=== PATIENT | female | born 1980 | race Native Hawaiian/Other Pacific Islander ===

== ENCOUNTER → 2017-05-07 | Outpatient (CLI) | payer OTHER ==
[~2017-05-07] MED LIST: PREN1CAP20 PO; PREN1CHW7 PO; ZANT150T2 PO
== END ==
LOC: HPND 08:47
PROVIDERS: ATTEND Obstetrics & Gynecology
DX: O09.522 Supervision of elderly multigravida, second trimester (principal); Z3A.00 Weeks of gestation of pregnancy not specified
CPT/HCPCS: 76801

== ENCOUNTER → 2017-05-19 | Outpatient (CLI) | payer OTHER | LOC: HPND 08:35 | PROVIDERS: ATTEND Obstetrics & Gynecology | DX: O09.521 Supervision of elderly multigravida, first trimester (principal) | CPT/HCPCS: 36415; 76813 ==

== ENCOUNTER → 2017-06-23 | Outpatient (CLI) | payer OTHER | LOC: HPND 08:49 | PROVIDERS: ATTEND Obstetrics & Gynecology | DX: O09.522 Supervision of elderly multigravida, second trimester (principal); O34.212 Maternal care for vertical scar from previous cesarean delivery; O34.12 Maternal care for benign tumor of corpus uteri, second trimester | CPT/HCPCS: 76811 ==

== ENCOUNTER → 2017-08-05 | Outpatient (CLI) | payer OTHER ==
[~2017-08-05] MED LIST changes: +FAMO1TAB73 PO; -ZANT150T2 PO; +ZITHTAB PO
== END ==
LOC: HPND 08:50
PROVIDERS: ATTEND Obstetrics & Gynecology
DX: O09.522 Supervision of elderly multigravida, second trimester (principal); O34.12 Maternal care for benign tumor of corpus uteri, second trimester
CPT/HCPCS: 76816

== ENCOUNTER 2017-08-19 12:30 | Emergency (ER) | payer OTHER ==
--- NOTE | 2017-08-19 13:14 | PD ---
HPI Chief Complaint Nosebleeds 2 Date Seen: Aug 19, 2017 Time Seen: 13:00 Travel History International Travel<30 Days: No Contact w/Intl Traveler<30Days: No Known Affected Area: No History of Present Illness HPI Patient is 36-year-old [place] female at 26-27 weeks [facility] and presents with multiple nosebleeds in the last 24 hours, she has no history of that prior to this episode she has no history of a bleeding problem the only thing she's done for is to stuff toilet paper in her nose and states only bleeding from the left nostril. Baby is active heart rate tracing is reactive 26 weeks and her contractions Weeks Gestation: 26 Para: 1 : 2 History Obstetric History Obstetric History Past Surgical History Narrative Surgical Family History Family History: Negative Social History Alcohol Use: No Tobacco Use: No Substance Abuse: No Allergies-Medications (Allergen,Severity, Reaction): Coded Allergies: shellfish derived (Unverified Allergy, Severe, Hives, 08/03/17) Home Meds Active Scripts Azithromycin (Zithromax Z-Nikos) 250 Mg Dspk, 250 MG PO DIRECTED for Infection , #1 DSPK 0 Refills 500 MG (2 tabs) day 1, then 1 tab days 2-5. Prov:Lacie dOonnell 08/03/17 Famotidine (Pepcid) 40 Mg Tab, 40 MG PO BID, #60 TAB 6 Refills Prov:Lacie Odonnell 07/05/17 Vit W/ Ferric Phospha (Vitafol Gummies 3.33-0.333-34.8 mg) 1 Chw Chw, 3 TAB PO DAILY, #90 BOTTLE 11 Refills Prov:Lacie Odonnell 06/09/17 W/O Vit A W/ Fe Carbo (Prenate Mini 18-0.6-0.4-350 mg) 18 Mg Iron-1 Mg- 350 Mg Cap, 1 TAB PO DAILY, #90 BOTTLE 11 Refills Prov:Lacie Odonnell 05/06/17 Review of Systems General / Constitutional: No: Fever, Weight Gain, Chills, Other Eyes: No: Diploplia, Blurred Vision, Visual changes, Pain, Photophobia HENT: Other, No: Headaches, Vertigo, Lightheadedness Cardiovascular: No: Irregular Rhythm, Chest Pain or Discomfort, Palpitations, Tachycardia, Syncope, Varicosities, Edema, Cyanosis Respiratory: No: Cough, Short of Breath, Other Gastrointestinal: No: Nausea, Vomiting, Diarrhea Genitourinary: No: Decreased Urinary Output, Oliguria Musculoskeletal: No: Limited ROM, Weakness, Cramping, Edema, Pain Skin: No Rash, No Itching, No Dryness, No Lumps, No Change in Pigmentation, No Change in Nails, No Alopecia, No Lesions Neurologic: No: Weakness, Dizziness, Syncope, Focal Abnormalities, Coordination Problem, Headache, Slurred Speech, Seizures Psychiatric: No: Depression, Suicidal Ideations, Homicidal Ideation Endocrine: No: Heat Intolerance, Cold Intolerance, Polydipsia, Polyuria, Other Physical Exam Narrative GENERAL: Well-nourished, well-developed patient. SKIN: Warm and dry. HEAD: Normocephalic and atraumatic. EYES: No scleral icterus. No injection or drainage. ENT: No nasal drainage or bleeding noted I examined the nose just flashlight could see in the left nostril the medial septum was inflamed and had a pink and minimally blood stained appearance noted and this was different from the septum in the right nostril. Mucous membranes pink. Airway patent. NECK: Supple, trachea midline. No JVD. CARDIOVASCULAR: Regular rate and rhythm without murmurs, gallops, or rubs. RESPIRATORY: Breath sounds equal bilaterally. No accessory muscle use. BREASTS: Bilateral exam showed no masses , no retractions, no nipple discharge. ABDOMEN/GI: Abdomen soft, non-tender, bowel sounds present, no rebound, no guarding Gravid to [26-] weeks size Fundal Height: [-26] Membranes: [intact ] Uterine Contractions: [-none] FHT's: Category: [1-] Baseline: [133-] Reactive: [-yes] Variability: [mod-] Decels: [-none] EXTREMITIES: No cyanosis or edema. BACK: Nontender without obvious deformity. No CVA tenderness. NEUROLOGICAL: Awake and alert. Motor and sensory grossly within normal limits. Five out of 5 muscle strength in all muscle groups. Normal speech. Data Data Orders Orders Cbc No Diff, Includes Plts (08/19/17 13:06) Labs H/H - MDM Interpretation(s) 36-year-old [place]ese female previous at 20 657 weeks presents with nosebleeds, has no obstetric problems baby is active heart rate tracing is reactive and no contractions. Is having no bleeding from the nose at this time the states that she bled last night was the last time H / H - Plan I offered the patient the opportunity go to the emergency room for more complete workup of nosebleeds mainly interested her blood count and seeing what if she is anemic because she can a little lightheaded when she had these bleeds H/H - will give a Rx for tid FeSo4 Diagnosis Diagnosis: Primary Impression: Epistaxis not due to trauma Additional Impressions: Previous section 26 weeks gestation of Disposition: 01 DISCHARGE HOME Condition: Stable Scripts Ferrous Sulfate (Ferrous Sulfate) 325 Mg (65 Mg Iron) Tablet 325 MG PO TIDPC for Nutritional Supplement for 30 Days, #90 TAB 0 Refills Prov: Stalin Cisneros II, MD 08/19/17 Patient Instructions: General Instructions Departure Forms: Tests/Procedures Stalin Cisneros II, MD Aug 19, 2017 13:13
[2017-08-19 13:49] LABS: HEMATOCRIT 29.4 % (35.0-46.0); HEMOGLOBIN 9.9 GM/DL (11.6-15.3); MEAN CORPUSCULAR HGB CONC 33.8 % (32.0-36.0); MEAN PLATELET VOLUME 8.1 FL (7.0-11.0); PLATELET COUNT 210 TH/MM3 (150-450); RED BLOOD COUNT 3.97 MIL/MM3 (4.00-5.30); WHITE BLOOD COUNT 7.5 TH/MM3 (4.0-11.0)
[2017-08-19] MEDS ORDERED: FERR325T18 PO (13:55)
[2017-08-31] MEDS ORDERED: PROC2.5C RECTAL (10:41)
[2017-08-31] MEDS ORDERED: [UNRECOGNIZED DRUG - OTHER] PO (10:44)
[2017-09-06] MEDS ORDERED: FERRTAB2 PO (11:26)
== END 2017-08-19 14:07 | disposition home or self-care (01) ==
LOC: HOBED 12:30
DX: O26.892 Other specified pregnancy related conditions, second trimester (principal); R04.0 Epistaxis; O34.219 Maternal care for unspecified type scar from previous cesarean delivery; Z3A.27 27 weeks gestation of pregnancy
CPT/HCPCS: 85027; 99284

== ENCOUNTER → 2017-09-13 | Outpatient (CLI) | payer OTHER ==
[~2017-09-13] MED LIST changes: -FAMO1TAB73 PO; +FERR325T18 PO; +FERRTAB2 PO; +PROC2.5C RECTAL; -ZITHTAB PO; +[UNRECOGNIZED DRUG - OTHER] PO
== END ==
LOC: CDED 08:47
PROVIDERS: ATTEND Nurse Practitioner Women's Health
DX: O24.419 Gestational diabetes mellitus in pregnancy, unspecified control (principal)
CPT/HCPCS: 97802

== ENCOUNTER 2017-11-10 10:03 | Inpatient (IN) | payer OTHER ==
[2017-11-10] VITALS (8 sets, daily range): BP systolic 95–128; BP diastolic 66–82; PULSE 76–105; RESP 17–18; TEMP 97.4–97.6; O2SAT 99–100
[~2017-11-10] VITALS: Ht 160 cm; Wt 62.0 kg
[2017-11-10] MEDS ORDERED: LACTATED RINGER'S 1000 ML INJ 1,000 ML IV ONE (10:27)
--- NOTE | 2017-11-10 10:42 | HHI.HP ---
History & Physical H&P Patient Name: Alina Matute Unit Number: [id number] Date of : 1980 Patient Status: Registered Clinic Attending Doctor: Lacie Richey MD HPI HPI Chief Complaint Consult Travel History International Travel<30 Days: No Contact w/Intl Traveler<30Days: No Known Affected Area: No History of Present Illness HPI 36-year-old 001, IUP at 38 weeks care complicated by history of prior delivery, desire for permanent surgical sterilization, AMA, A1 DM The patient presents for leakage of amniotic fluid amnisure is positive. Her previous was at term in 2013. She does not desire a trial of labor/ . She denies any obstetrical complaints today. She reports good movement. She denies any frequent or painful contractions. . She denies any vaginal bleeding. The patient reports her sugars are well-controlled at home on diet only. She checks fasting blood sugars which are typically in the 90s and 2 hour postprandials which range from 100-125. Weeks Gestation: 38 Para: 1 : 2 Miscarriage: 0 : 0 History (Limited) History Past Medical History Narrative Medical History of gestational diabetes Obstetric History Obstetric History 001 Full-term delivery 1 Menarche at 13 Menses are irregular and do not occur monthly Menses last approximate 5 days The patient denies a history of abnormal Pap smears or STDs Past Surgical History Narrative Surgical section 1 Family History Narrative Family History DM Social History Alcohol Use: No Tobacco Use: No Substance Abuse: No Allergies-Medications Allergies-Medications (Allergen,Severity, Reaction): Coded Allergies: shellfish derived (Unverified Allergy, Severe, Hives, 08/31/17) Home Meds Active Scripts Multi-Vit/Iron-Folic [id number] C (Ferralet) 90-1-0.012-120 mg Tab, 1 CAP PO DAILY for 30 Days, #30 CHEW 3 Refills Prov:Katharine Smith CNM [employer]UFA[employer]URING [employer]OMATION ENGINEER 09/06/17 [citranatal campbell] No Conflict Check, 1 TAB PO DAILY for anemia, #30 BOTTLE 7 Refills Prov:Lacie Odonnell MANUFACTURING AUTOMATION ENGINEER 08/31/17 Hydrocortisone Rectal 2.5% (Proctosol Hc 2.5%) 2.5% Cream, 1 APPLIC RECTAL Q4H Y for PAIN/INFLAMMATION, #1 TUBE 3 Refills Prov:Lacie Odonnell 08/31/17 Ferrous Sulfate (Ferrous Sulfate) 325 Mg (65 Mg Iron) Tablet, 325 MG PO TIDPC for Nutritional Supplement for 30 Days, #90 TAB 0 Refills Prov:Stalin Cisneros II, MD 08/19/17 Vit W/ Ferric Phospha (Vitafol Gummies 3.33-0.333-34.8 mg) 1 Chw Chw, 3 TAB PO DAILY, #90 BOTTLE 11 Refills Prov:Lacie Odonnell 06/09/17 W/O Vit A W/ Fe Carbo (Prenate Mini 18-0.6-0.4-350 mg) 18 Mg Iron-1 Mg- 350 Mg Cap, 1 TAB PO DAILY, #90 BOTTLE 11 Refills Prov:Lacie Odonnell 05/06/17 ROS Review of Systems Except as stated in HPI: all other systems reviewed are Neg Physical Exam Physical Exam Narrative GENERAL: Well-nourished, well-developed patient. SKIN: Warm and dry. HEAD: Normocephalic and atraumatic. EYES: No scleral icterus. No injection or drainage. ENT: No nasal drainage noted. Mucous membranes pink. Airway patent. NECK: Supple, trachea midline. No JVD. CARDIOVASCULAR: Regular rate and rhythm without murmurs, gallops, or rubs. RESPIRATORY: Breath sounds equal bilaterally. No accessory muscle use. BREASTS: Deferred ABDOMEN/GI: Abdomen soft, non-tender, bowel sounds present, no rebound, no guarding Gravid GENITOURINARY - cx posterior closed FHT's: 144 reactive strip CTXs q 3-4 min EXTREMITIES: No cyanosis or edema. BACK: Nontender without obvious deformity. NEUROLOGICAL/musculoskeletal: Awake and alert. Motor and sensory grossly within normal limits. Grossly normal Five out of 5 muscle strength in all muscle groups. Normal speech. Grossly normal range of motion and gait Psychiatric: Grossly normal memory and affect Data Data [facility] Plan Assessment/plan: 1. IUP at 38 weeks with SROM 2. History of prior delivery: The patient desires elective repeat delivery which will be scheduled at 39 weeks. She does not desire trial of labor/. Risks, benefits, and alternatives to delivery were discussed at length including but not limited to pain, infection, bleeding , injury to other organs like the bladder/bowel/nerves/vessels, injury to the baby, need for repeat operation, need for hysterectomy, need for blood transfusion, wound infection/breakdown, and other possible complications. All of her questions were answered and she desires to proceed. She will sign consent on the day of surgery. 3. Contraception: The patient desires permanent surgical sterilization. She is content with her family size and does not desire any other biological children. Bilateral tubal ligation was discussed at length with the patient including the permanent and irreversible nature of the procedure and the inability to have further biological children should she desire. Other risks include failure of approximately 1%, risk of ectopic , the risk of needing emergency surgery due to a complication with the tubal/ectopic, and other possible complications. Alternatives were discussed at length including but not limited to the terminal superintendent reversible contraceptive methods, OCPs, patch, Depo-Provera, and other possible methods. Her tubal papers were verified and were signed on 09/22/17. 4. well-being: Recommend kick counts daily 5. A1 DM: Continue ADA diet, and glucose monitoring 6. Follow up with primary OB as scheduled or sooner if needed. Lacie Rihcey MD Nov 08, 2017 13:45 Stalin Cisneros II, MD Nov 10, 2017 10:42
[2017-11-10] MEDS ORDERED: LACTATED RINGER'S 1000 ML INJ 1,000 ML IV SCH ×2 (10:57→17:43)
[2017-11-10] MEDS ORDERED: ceFAZolin INJ 1,000 MG VIAL ONE (11:05)
[2017-11-10 11:14] LABS: AUTOMATED NEUTROPHIL # 6.3 TH/MM3 (1.8-7.7); BASOPHIL % 0.5 % (0.0-2.0); EOSINOPHIL # 0.1 TH/MM3 (0-0.4); EOSINOPHIL % 1.3 % (0.0-4.0); HEMATOCRIT 33.4 % (35.0-46.0); HEMOGLOBIN 10.8 GM/DL (11.6-15.3); LYMPH % 20.9 % (9.0-44.0); LYMPHOCYTE # 1.9 TH/MM3 (1.0-4.8); MEAN CELL VOLUME 71.1 FL (80.0-100.0); MEAN CORPUSCULAR HGB CONC 32.3 % (32.0-36.0); MEAN PLATELET VOLUME 8.2 FL (7.0-11.0); MONOCYTE # 0.6 TH/MM3 (0-0.9); NEUT % 70.3 % (16.0-70.0); PLATELET COUNT 202 TH/MM3 (150-450); RED BLOOD COUNT 4.71 MIL/MM3 (4.00-5.30)
[2017-11-10 11:19] LABS: BILIRUBIN, URINE NEG (NEG); BLOOD, URINE NEG (NEG); GLUCOSE,URINE NEG (NEG); KETONE, URINE NEG (NEG); MUCUS URINE FEW /lpf (OCC); NITRITE,URINE NEG (NEG); PH, URINE 6.5 (5.0-8.5); RENAL EPITHELIAL CELLS <1 /hpf; SQUAMOUS EPITHELIAL CELL URINE 3 /hpf (0-5); URINE COLOR YELLOW (YELLW/STRAW); URINE LEUKOCYTE ESTERASE NEG (NEG)
[2017-11-10] MEDS ORDERED: MORPHINE SULFATE PF 5 MG/10 ML VIAL ONE (11:21)
[2017-11-10] MEDS ORDERED: ceFAZolin 2 GM PREMIX 50 ML IV SCH (11:30)
[2017-11-10] MEDS ORDERED: EPIDURAL-NO SYSTEMIC NARCOTICS PRN (11:38)
[2017-11-10] MEDS ORDERED: EPIDURAL-NALOXONE HCL 0.4 MG/ML AMP IV PUSH PRN (11:38)
[2017-11-10] MEDS ORDERED: EPIDURAL-DIPHENHYDRAMINE HCL 50 MG CAP PO PRN (11:38)
[2017-11-10] MEDS ORDERED: EPIDURAL-DO NOT ADMINISTER ANTICOAGULANTS PRN (11:38)
[2017-11-10] MEDS ORDERED: EPIDURAL-DIPHENHYDRAMINE HCL 50 MG/ML VIAL IV PUSH PRN (11:38)
[2017-11-10] MEDS ORDERED: ONDANSETRON HCL 4 MG/2 ML VIAL IV ONE (12:00)
[2017-11-10] MEDS ORDERED: ePHEDrine/NS 25 MG/5 ML SYRINGE IV ONE (12:00)
[2017-11-10] MEDS ORDERED: PHENYLEPH/NS 1000 MCG/10 ML SYR IV ONE (12:00)
[2017-11-10] MEDS ORDERED: OXYTOCIN 10 UNIT/ML AMP IV ONE (12:00)
[2017-11-10] MEDS ORDERED: CITRIC ACID-SODIUM CITRATE LIQ 30 ML UDC PO SCH (12:00)
[2017-11-10] MEDS ORDERED: LIDOCAINE 2%/EPINEPHrine PF 1:200,000 20ML SDV OTHER ONE (12:00)
[2017-11-10] MEDS ORDERED: DEXAMETHASONE SOD PHOS 4 MG/ML VIAL IV ONE (12:00)
[2017-11-10] MEDS ORDERED: ACETAMINOPHEN 1000 MG/100 ML 100 ML IV ONE (12:12)
[2017-11-10] MEDS ORDERED: ONDANSETRON HCL 4 MG/2 ML VIAL IV PUSH PRN (12:45)
[2017-11-10] MEDS ORDERED: SIMETHICONE 80 MG CHEWABLE TAB PO PRN (12:45)
[2017-11-10] MEDS ORDERED: SODIUM CHLORIDE 0.9% FLUSH 10 ML FLUSH IV FLUSH PRN (12:45)
[2017-11-10] MEDS ORDERED: ZOLPIDEM TARTRATE 5 MG TAB PO PRN (12:45)
[2017-11-10] MEDS ORDERED: oxyCODONE/ACETAMINOPHEN 5 MG/325 MG TAB PO PRN (12:45)
[2017-11-10] MEDS ORDERED: MEPERIDINE HCL 25 MG/ML VIAL ONE (13:00)
[2017-11-10] MEDS ORDERED: KETOROLAC TROMETHAMINE 60 MG/2 ML (IM) VIAL IM ONE ×2 (13:00→14:45)
--- NOTE | 2017-11-10 13:16 | MP ---
cc: Stalin Cisneros MD DATE OF OPERATION: PREOPERATIVE DIAGNOSES: Term intrauterine , previous section with spontaneous rupture of membranes, desires repeat section, tubal ligation for sterilization. POSTOPERATIVE DIAGNOSES: Term intrauterine , previous section with spontaneous rupture of membranes, desires repeat section, tubal ligation for sterilization. PROCEDURE PERFORMED: Repeat low transverse section, bilateral tubal ligation. SURGEON: Stalin Cisneros MD BULL RIDER: ANESTHESIA: Spinal. PREOPERATIVE NOTE: Patient is a 36-year-old female at 39 weeks, who has had a previous and requests repeat . She had spontaneous rupture of membranes this morning. Her AmniSure is positive. She is brett regularly. The patient requests repeat and planned that procedure. PROCEDURE: The patient was taken to the operating room and placed in supine position on the operating table. After adequate spinal anesthesia, she was prepped and draped for abdominal surgery. Her previous Pfannenstiel incision was excised out and cast away. Incision carried to the fascia sharply. The fascia was incised laterally and then off the rectus muscle in the usual fashion. The peritoneal cavity entered in the midline, the incision extended superior and inferiorly, and the bladder blade placed in the lower edge of the incision. The visceral peritoneum reflected off the lower uterine segment sharply and was placed on a bladder blade. The transverse hysterotomy was made, extended bluntly bilaterally and clear fluid noted. A male was delivered from vertex presentation at 12 noon even, and weight was 3170 grams, 8 and 9. There were no complications with delivery. Cord blood obtained. This was after delayed cord clamping for 45 seconds. Placenta manually extracted. The uterus exteriorized and the hysterotomy closed in running layer of 0 chromic, followed by imbricating suture of same, and hemostasis achieved with several [id number] stick ties. The tubal was then performed. The uterus was elevated somewhat and the left tube grasped with a Marv clamp and elevated. An avascular window in the mesosalpinx identified and a hemostat passed through. The 2 catgut sutures were brought through that window in the mesosalpinx, and the tube was tied fore and aft and the intervening segment excised out and sent to pathology. There was no complication of that procedure. Same was done on the opposite side. The uterus was elevated and blood suctioned from the cul-de-sac, gutters, and the uterus replaced in peritoneal cavity. Parietal peritoneum closed in running layer of 2-0 Vicryl. The rectus muscle reapproximated with stick ties of chromic and Vicryl. The fascia was then closed in a running layer of 0 Vicryl. The subcutaneous tissues reapproximated with a running stitch of 3-0 plain catgut suture. The skin closed with 3-0 Monocryl in a subcuticular stitch and a pressure dressing applied. The estimated blood loss 500 mL. There were no complications. Sponge and needle correct x 2, and the patient to recovery in stable condition. Baby to [facility]. MD XIOMARA Lopez/ELSA , 12:51 PM , 01:14 PM
[2017-11-10] MEDS ORDERED: OXYTOCIN 30 UNITS-500ML PREMIX 500 ML IV ONE (13:30)
[2017-11-10] MEDS ORDERED: MEPERIDINE HCL 25 MG/ML VIAL IV PUSH ONE (14:45)
[2017-11-10] MEDS ORDERED: SODIUM CHLORIDE 0.9% FLUSH 10 ML FLUSH IV FLUSH SCH (21:00)
[2017-11-10] MEDS ORDERED: OXYTOCIN 30 UNITS-500ML PREMIX 500 ML IV PRN (22:45)
[2017-11-11] VITALS: BP 101/65; PULSE 96; RESP 18; TEMP 98
[2017-11-11] MEDS: IBUPROFEN 600 MG TAB PO PRN ×4 (02:59→21:15)
[2017-11-11] MEDS: ACETAMINOPHEN 325 MG TAB PO PRN ×2 (02:59→08:45)
[2017-11-11 04:23] VITALS: BP 86/59; PULSE 81; RESP 18; TEMP 97.8
[2017-11-11 05:54] LABS: BASOPHIL % 0.1 % (0.0-2.0); EOSINOPHIL % 0.2 % (0.0-4.0); HEMATOCRIT 25.2 % (35.0-46.0); HEMOGLOBIN 8.2 GM/DL (11.6-15.3); LYMPH % 15.4 % (9.0-44.0); MEAN CELL VOLUME 70.6 FL (80.0-100.0); MEAN CORPUSCULAR HEMOGLOBIN 23.1 PG (27.0-34.0); MEAN CORPUSCULAR HGB CONC 32.7 % (32.0-36.0); MEAN PLATELET VOLUME 7.8 FL (7.0-11.0); MONO % 6.9 % (0.0-8.0); MONOCYTE # 0.9 TH/MM3 (0-0.9); NEUT % 77.4 % (16.0-70.0); PLATELET COUNT 170 TH/MM3 (150-450); RED BLOOD COUNT 3.57 MIL/MM3 (4.00-5.30); WHITE BLOOD COUNT 12.9 TH/MM3 (4.0-11.0)
[2017-11-11 06:15] LABS: BICARBONATE 22.5 MEQ/L (21.0-32.0); CALCIUM 7.8 MG/DL (8.5-10.1); CREATININE 0.47 MG/DL (0.50-1.00)
--- NOTE | 2017-11-11 08:15 | HHI.OB ---
Subjective Post Operative Day: 1 Remarks Postoperative day number 1. AFVSS overnight. Pain well-controlled. Incision not draining. Decreased lochia. Denies dysuria. No breast tenderness. She is feeding the baby via breast. Appetite good. No nausea or vomiting. + flatus. no bowel movement. Ambulating well. Denies calf pain, shortness of breath, or cough. Otherwise, she is doing well this morning and has no other complaints. Objective Vitals/I&O Vital Signs Date Time Temp Pulse Resp B/P (MAP) Pulse Ox O2 Delivery O2 Flow Rate FiO2 11/11/17 04:23 97.8 81 18 86/59 (68) 11/11/17 00:00 98.0 96 18 101/65 (77) 11/10/17 20:30 97.6 105 17 106/69 (81) 11/10/17 14:40 97.6 85 18 95/68 (77) 99 11/10/17 13:50 76 18 127/70 (89) 100 11/10/17 13:44 97.4 11/10/17 13:38 84 18 99 11/10/17 13:38 108/67 (81) 11/10/17 13:25 99 11/10/17 13:25 88 18 128/75 (92) 11/10/17 13:10 90 18 110/66 (81) 100 11/10/17 12:55 97.6 18 100 11/10/17 12:55 80 112/82 (92) Result Diagram: 11/11/17 0505 11/11/17 0505 Objective Remarks GENERAL: Well-nourished, well-developed patient. CARDIOVASCULAR: Regular rate and rhythm without murmurs, gallops, or rubs. RESPIRATORY: Breath sounds equal bilaterally. No accessory muscle use. ABDOMEN/GI: Abdomen soft, non-tender, bowel sounds present. Incision: Clean, dry and intact. Fundus: Firm, non-tender at umbilicus. GENITOURINARY: Light to moderate bleeding. EXTREMITIES: No cyanosis or edema, non-tender, without signs of DVT. Medications and IVs Current Medications Medications (Trade) Dose Ordered Sig/William Route Start Time Stop Time Status Last Admin Lactated Ringer's 1,000 ml @ 100 mls/hr Q10H IV 11/10/17 17:43 11/11/17 13:42 11/10/17 17:00 Oxytocin 500 ml @ 100 mls/hr UNSCH X1 PRN IV 11/10/17 22:45 11/11/17 22:44 (NS Flush) 2 ml BID IV FLUSH 11/10/17 21:00 (NS Flush) 2 ml UNSCH PRN IV FLUSH 11/10/17 12:45 (Mylicon Chew) 80 mg QID PRN PO 11/10/17 12:45 (Tylenol) 650 mg Q6H PRN PO 11/10/17 12:45 11/11/17 02:59 (Motrin) 600 mg Q6H PRN PO 11/10/17 12:45 11/11/17 02:59 (Percocet 5-325 Mg) 1 tab Q4H PRN PO 11/10/17 12:45 (Percocet 5-325 Mg) 2 tab Q4H PRN PO 11/10/17 12:45 (Lissett-Colace) 2 tab Q12H PRN PO 11/10/17 12:45 (Ambien) 5 mg HS PRN PO 11/10/17 12:45 (M-M-R Ii Inj) 0.5 ml ONCE ONCE SQ 11/11/17 16:00 11/11/17 16:01 (Boostrix Inj) 0.5 ml ONCE ONCE IM 11/11/17 16:00 11/11/17 16:01 11/11/17 03:55 (Zofran Inj) 4 mg Q6H PRN IV PUSH 11/10/17 12:45 Miscellaneous Information NO SYSTEMIC NARCOTICS TO BE GIVEN FO... UNSCH PRN .XX 11/10/17 11:38 11/11/17 11:37 (Narcan Inj) 0.4 mg UNSCH PRN IV PUSH 11/10/17 11:38 11/11/17 11:37 (Benadryl Inj) 25 mg Q6H PRN IV PUSH 11/10/17 11:38 11/11/17 11:37 (Benadryl) 50 mg Q6H PRN PO 11/10/17 11:38 11/11/17 11:37 11/10/17 15:50 Miscellaneous Information ALL NURSING DEPARTMENTS UNSCH PRN .XX 11/10/17 11:38 11/11/17 11:37 Assessment/Plan Problem List: (1) delivery delivered ICD Codes: O82 - Encounter for delivery without indication Status: Acute Plan: 36 y/o female who is POD# 1 s/p CXN. -Continue routine care. -Percocet and Motrin PRN pain. -Encouraged OOB. Advised pelvic rest for 6 wks. Will need a f/u appt. in 1 wk for incision check. -Re: ctrl, a tubal ligation was performed. -D/c in 1-2 more days. wdw OB attending, Chloe Garcia MD R1 Nov 11, 2017 08:15
[2017-11-11] MEDS: DOCUSATE SODIUM 50 MG/SENNA 8.6 MG TAB PO PRN ×2 (08:45→21:15)
[2017-11-11] MEDS ORDERED: DIPHTH/TETANUS/ACEL PERTUSSIS (BOOSTER) 0.5 ML VIAL/PFS IM ONE (16:00)
[2017-11-11] MEDS ORDERED: MEASLES, MUMPS, RUBELLA VACCINE 0.5 ML VIAL SQ ONE (16:00)
[2017-11-11 19:55] VITALS: BP 116/80; PULSE 85; RESP 16; TEMP 97.8
[2017-11-11 20:30] VITALS: BP 116/80; PULSE 85; RESP 16; TEMP 97.8
[2017-11-11] MEDS: oxyCODONE/ACETAMINOPHEN 5 MG/325 MG TAB PO PRN (21:14)
[2017-11-12] MEDS: oxyCODONE/ACETAMINOPHEN 5 MG/325 MG TAB PO PRN ×4 (03:56→19:43)
[2017-11-12] MEDS: IBUPROFEN 600 MG TAB PO PRN ×3 (03:56→19:43)
--- NOTE | 2017-11-12 07:27 | HHI.OB ---
Subjective Post Operative Day: 2 Remarks Postoperative day number 2. AFVSS overnight. Pain well-controlled. Incision not draining. Decreased lochia. Denies dysuria. No breast tenderness. She is feeding the baby via breast. Appetite good. No nausea or vomiting. + flatus. no bowel movement. Ambulating well. Denies calf pain, shortness of breath, or cough. Otherwise, she is doing well this morning and has no other complaints. Objective Vitals/I&O Vital Signs Date Time Temp Pulse Resp B/P (MAP) Pulse Ox O2 Delivery O2 Flow Rate FiO2 11/11/17 20:30 97.8 11/11/17 20:30 85 16 116/80 (92) 11/11/17 19:55 97.8 85 16 116/80 (92) Result Diagram: 11/11/17 0505 11/11/17 0505 Objective Remarks GENERAL: Well-nourished, well-developed patient. CARDIOVASCULAR: Regular rate and rhythm without murmurs, gallops, or rubs. RESPIRATORY: Breath sounds equal bilaterally. No accessory muscle use. ABDOMEN/GI: Abdomen soft, non-tender, bowel sounds present. Incision: Clean, dry and intact. Fundus: Firm, non-tender at umbilicus. GENITOURINARY: Light to moderate bleeding. EXTREMITIES: No cyanosis or edema, non-tender, without signs of DVT. Medications and IVs Current Medications Medications (Trade) Dose Ordered Sig/William Route Start Time Stop Time Status Last Admin (NS Flush) 2 ml BID IV FLUSH 11/10/17 21:00 (NS Flush) 2 ml UNSCH PRN IV FLUSH 11/10/17 12:45 (Mylicon Chew) 80 mg QID PRN PO 11/10/17 12:45 (Tylenol) 650 mg Q6H PRN PO 11/10/17 12:45 11/11/17 08:45 (Motrin) 600 mg Q6H PRN PO 11/10/17 12:45 11/12/17 03:56 (Percocet 5-325 Mg) 1 tab Q4H PRN PO 11/10/17 12:45 11/11/17 15:25 (Percocet 5-325 Mg) 2 tab Q4H PRN PO 11/10/17 12:45 11/12/17 03:56 (Lissett-Colace) 2 tab Q12H PRN PO 11/10/17 12:45 11/11/17 21:15 (Ambien) 5 mg HS PRN PO 11/10/17 12:45 (Zofran Inj) 4 mg Q6H PRN IV PUSH 11/10/17 12:45 Assessment/Plan Problem List: (1) delivery delivered ICD Codes: O82 - Encounter for delivery without indication Status: Acute Plan: 36 y/o female who is POD# 2 s/p CXN. -Continue routine care. -Percocet and Motrin PRN pain. -Encouraged OOB. Advised pelvic rest for 6 wks. Will need a f/u appt. in 1 wk for incision check. -Re: ctrl, a tubal ligation was performed. -D/c likely tomorrow, but may d/c today if patient decides. wdw OB attending, Chloe So MD R1 Nov 12, 2017 07:27
[2017-11-12 07:43] VITALS: BP 90/60; PULSE 79; RESP 18; TEMP 97.6; O2SAT 100
[2017-11-12] MEDS ORDERED: OXYC1TAB63 PO (08:46)
--- NOTE | 2017-11-12 12:03 | HHI.FPPN ---
Addendum to progress note ADDENDUM Reason for addendum: Additonal documentation Additional information S: Received a call from nursing staff about patient having 10/10 abdominal pain. I went to see her around 1135. Patient stated that she was having pain in her lower bilateral abdomen particularly around her incision site. She stated that she was having trouble ambulating due to the pain. She is still having flatus. No BM as of yet. Pt stated that she was just given a dose of Ibuprofen and Percocet prior to my arrival. She had a Simethicone chew earlier this morning. O: General: Patient laying in bed on her back, in no acute distress. Abdomen: Nondistended. Uterus palpated below umbilicus. Normoactive bowel sounds in all 4 quadrants. Tenderness in bilateral lower quadrants. Incision site without signs of infection, no erythema, no drainage. A/P: Abdominal pain, likely due to postsurgical status, POD 2 from repeat C/S with tubal ligation. I do not suspect ileus at this time due to abdomen not being distended, normoactive bowel sounds, and flatus. However, will continue to monitor for any changes. Continue simethicone chews and Percocet as ordered. Continue ambulation. Continue to monitor for any worsening symptoms. Chloe Lucero Dr., MD R1 Nov 12, 2017 12:03
[2017-11-12] MEDS: DOCUSATE SODIUM 50 MG/SENNA 8.6 MG TAB PO PRN (14:52)
[2017-11-12 20:27] VITALS: BP 111/85; PULSE 97; RESP 18; TEMP 98.3
[2017-11-13] MEDS: oxyCODONE/ACETAMINOPHEN 5 MG/325 MG TAB PO PRN ×3 (00:04→07:57)
[2017-11-13] MEDS: DOCUSATE SODIUM 50 MG/SENNA 8.6 MG TAB PO PRN (04:09)
[2017-11-13] MEDS: IBUPROFEN 600 MG TAB PO PRN (04:10)
[2017-11-13 08:00] VITALS: BP 102/70; PULSE 84; RESP 20; TEMP 97.7; O2SAT 99
--- NOTE | 2017-11-13 08:16 | HHI.DCPOC ---
Discharge Care Plan Diagnosis: (1) delivery delivered Report Symptoms to Your Doctor -Temperature above 100.5 degrees -Redness, of incision or excessive or foul smelling drainage -Unusual pain or calf pain -Increased vaginal bleeding -Painful or difficulty urinating -Feelings of extreme sadness or anxiety after 2 weeks Goals to Promote Your Health * To prevent worsening of your condition and complications * To maintain your health at the optimal level Directions to Meet Your Goals Take your medications as prescribed Follow your dietary instruction Follow activity as directed Ensure plenty of rest for recovery Drink fluids for hydration Keep your appointments as scheduled Take your immunizations and boosters as scheduled If your symptoms worsen call your PCP, if no PCP go to Urgent Care Center or Emergency Room Smoking is Dangerous to Your Health. Avoid second hand smoke Call the 24-hour crisis hotline for domestic abuse at Travis Little MD R2 Nov 13, 2017 08:16
[2017-11-13] MEDS ORDERED: IBUP-232 PO (08:17)
[2017-11-13] MEDS ORDERED: PERI PO (08:17)
--- NOTE | 2017-11-13 08:48 | HHI.OB ---
Subjective Post Operative Day: 3 Remarks Pt seen and examined this morning. Postoperative day # 3 AFVSS overnight. Incision nondraining. Decreased lochia. Denies dysuria. No breast tenderness. She is feeding the baby via breasts. Appetite good. No nausea or vomiting. She has not yet had a bowel movement, but does endorse bowel gas. Ambulating well. Denies calf pain or shortness of breath. Otherwise, she is doing well this morning and has no other concerns. Objective Vitals/I&O Vital Signs Date Time Temp Pulse Resp B/P (MAP) Pulse Ox O2 Delivery O2 Flow Rate FiO2 11/13/17 08:00 97.7 84 20 102/70 (81) 99 11/12/17 20:27 98.3 97 18 111/85 (94) Result Diagram: 11/11/17 0505 11/11/17 0505 Objective Remarks GENERAL: Well-nourished, well-developed patient. CARDIOVASCULAR: Regular rate and rhythm without murmurs, gallops, or rubs. RESPIRATORY: Breath sounds equal bilaterally. No accessory muscle use. ABDOMEN/GI: Abdomen soft, non-tender, bowel sounds present. Incision: Clean, dry and intact. Fundus: Firm, non-tender at umbilicus. GENITOURINARY: Light to moderate bleeding. EXTREMITIES: No cyanosis or edema, non-tender, without signs of DVT. Medications and IVs Current Medications Medications (Trade) Dose Ordered Sig/William Route Start Time Stop Time Status Last Admin (NS Flush) 2 ml BID IV FLUSH 11/10/17 21:00 (NS Flush) 2 ml UNSCH PRN IV FLUSH 11/10/17 12:45 (Mylicon Chew) 80 mg QID PRN PO 11/10/17 12:45 11/12/17 09:44 (Tylenol) 650 mg Q6H PRN PO 11/10/17 12:45 11/11/17 08:45 (Motrin) 600 mg Q6H PRN PO 11/10/17 12:45 11/13/17 04:10 (Percocet 5-325 Mg) 1 tab Q4H PRN PO 11/10/17 12:45 11/11/17 15:25 (Percocet 5-325 Mg) 2 tab Q4H PRN PO 11/10/17 12:45 11/13/17 07:57 (Lissett-Colace) 2 tab Q12H PRN PO 11/10/17 12:45 11/13/17 04:09 (Ambien) 5 mg HS PRN PO 11/10/17 12:45 (Zofran Inj) 4 mg Q6H PRN IV PUSH 11/10/17 12:45 Assessment/Plan Problem List: (1) delivery delivered ICD Codes: O82 - Encounter for delivery without indication Status: Acute Plan: 36 y/o female who is POD# 3 s/p CXN. -Continue routine care. -Percocet and Motrin PRN pain. -Encouraged OOB. Advised pelvic rest for 6 wks. Will need a f/u appt. in 1 wk for incision check. -Re: ctrl, a tubal ligation was performed. -D/c today with baby. wdw OB attending, Travis Pulliam MD R2 Nov 13, 2017 08:48
== END 2017-11-13 10:43 | disposition home or self-care (01) | DRG 766 ==
LOC: HOBED 10:03 → H2EB 10:32 → H1EA 14:06
PROVIDERS: ADMIT Obstetrics & Gynecology Maternal & Fetal Medicine; ATTEND Obstetrics & Gynecology Maternal & Fetal Medicine
PROC: 10D00Z1 Extraction of Products of Conception, Low, Open Approach (ICD-10-PCS; principal; 2017-11-10)
PROC: 0UB70ZZ Excision of Bilateral Fallopian Tubes, Open Approach (ICD-10-PCS; 2017-11-10)
DX: O34.219 Maternal care for unspecified type scar from previous cesarean delivery (principal); Z30.2 Encounter for sterilization; Z3A.38 38 weeks gestation of pregnancy; Z37.0 Single live birth
CPT/HCPCS: 76818; 80048; 80307; 81001; 85025; 86850; 86900; 86901; 88302; 90715; J0131; J0690; J1100; J1885; J2175; J2274; J2370; J2405; J2590; J7120; Q0163